=== PATIENT | female | born 1935 | race Caucasian/White ===

== ENCOUNTER → 2017-07-01 | Day surgery (SDC) | payer OTHER ==
[2017-06-30 07:49] VITALS: Ht 157.5 cm; Wt 74.5 kg
[~2017-07-01] VITALS: Ht 157.5 cm; Wt 74.5 kg
[~2017-07-01] MED LIST: ASPCH81X PO; ATROPINE SULFATE 0.1 MG/ML 5ML SYR IV PRN; BUPIVACAINE/EPINEPHRINE 0.5% MPF 1:200,000 30 ML VIAL ONE; CALC500C70 PO; CEFAZOLIN 2000MG IV PUSH 10 ML IV SCH; EpHEDrine SULFATE INJ 50 MG/ML AMP IV PRN; FENTANYL CITRATE INJ 50 MCG/1 ML 2 ML VIAL IV PRN; FENTANYL CITRATE INJ 50 MCG/1 ML 2 ML VIAL ONE; LACTATED RINGER'S 1000ML 1,000 ML IV SCH; LIDOCAINE HCL 1% 20 ML VIAL ONE; LIDOCAINE HCL 2% 2 ML VIAL (20MG/ML) ONE; MIDAZOLAM HCL 1 MG/ML 2ML VIAL ONE; MULT-506 PO; OMEG10007 PO; ONDANSETRON INJ 2 MG/ML 2 ML VIAL IV PRN; ONDANSETRON INJ 2 MG/ML 2 ML VIAL ONE; OXYC-57 PO; OXYCODONE/ACETAMINOPHEN 5-325 TAB PO PRN; POLY1SOL6 OPB; PROPOFOL IV EMULSION 10 MG/ML 20 ML VIAL IV ONE; SODIUM CHLORIDE 0.9% 1000ML 1,000 ML IV SCH; SYN75 PO; VITAMIN C PO; VITAMIN D PO
--- NOTE | 2017-07-01 06:44 | History & Physical Bridge - [place] ---
H&P Re-Evaluation Bridge Note: I have examined the patient, reviewed the History & Physical and in the interval since the performance of the History & Physical I have noted the following changes of clinical significance: No changes noted
--- NOTE | 2017-07-01 09:42 | Discharge Instructions-SurgCtr ---
Discharge Instructions Date of Service Jul 01, 2017. Visit Reason for Visit: Left Ankle Painful Hardware; Closed Bimalleolar Fx Discharge Discharge Diagnosis / Problem: SAME ABOVE Discharge Goals Goal(s): Decrease discomfort, Improve function Activity Recommendations Activity Limitations: as noted below Lifting Limitations: gradually increase as tolerated Exercise/Sports Limitations: until after follow-up appointment Shower/Bathe: keep incision dry Anesthesia . Post Anesthesia Instructions: If you have had General Anesthesia or IV Sedation: * Do not drive today. * Resume driving when surgeon permits. * Do not make important decisions or sign legal documents today. * Call surgeon for: 1. Temperature elevations greater than 101 degrees F. 2. Uncontrollable pain. 3. Excessive bleeding. 4. Persistent nausea and vomiting. 5. Medication intolerance (nausea, vomiting or rash). * For nausea and vomiting use only clear liquids such as: tea, soda, bouillon until nausea subsides, then gradually increase diet as tolerated. * If you have any concerns or questions, call your surgeon's office. If physician is unavailable and it is an emergency, call 911 or go to the nearest emergency room. . Instructions / Follow-Up Instructions / Follow-Up MEDICATIONS: * Resume previous medications unless instructed otherwise by your surgeon. * Always take pain medication on a full stomach or with food to avoid upset stomach. * Do not drink alcohol or drive while taking narcotics. * Ibuprofen or Tylenol may be taken if narcotic not needed. SPECIAL CARE INSTRUCTIONS: __ None _X_ Keep extremity elevated and iced x 48 hours; apply ice 20-30 minutes 8-10 times/day. May remove at night. __ Crutches __ May discard when able __ Brace/Post-op shoe __ 24 hrs/day __ Remove at night _X_ Dressing __ Maintain until seen in office, may shower with plastic over site _X_ Remove dressings in 24-48 hours and then may shower __ Cover incisions with band-aids after showering __ Do not remove steri-strips KEEP INCISION CLEAN AND DRY. REDRESS INCISION AFTER SHOWER COVER WITH CECILLE. Call physician if chills or temperature rises above 102 degrees or pain unrelieved by prescribed pain medications. Office [phone] Diet Recommendations Home Diet: no limitations Procedures Procedures Performed: Left Ankle Plate and Screw Removal Pending Studies Studies pending at discharge: no Medical Emergencies . Who to Call and When: Medical Emergencies: If at any time you feel your situation is an emergency, please call 911 immediately. . Non-Emergent Contact Non-Emergency issues call your: Primary Care Provider . . "Provider Documentation" section prepared by Matthew Machado. .
--- NOTE | 2017-07-01 09:53 | OPERATIVE REPORT ---
DATE OF OPERATION: 07/01/2017 PREOPERATIVE DIAGNOSIS: Painful hardware of the left ankle. POSTOPERATIVE DIAGNOSIS: Same. PROCEDURE: Removal of hardware of the left ankle. SURGEON: Dr. Matthew Martinez. PIERCING ARTIST: Matthew Machado PA-C, whose assistance was necessary for positioning of the leg and helping with retraction and closure. ANESTHESIA: General. COMPLICATIONS: None. CONDITION: Stable to PACU. INDICATIONS: Ottoniel is a pleasant 81-year-old female who underwent an ORIF of left ankle almost 2 years ago. She has always had pain at the most distal aspect of the lateral plate. She never had any medial sided pain. After failing several years of conservative treatment, she elected to undergo hardware removal. OPERATION AND FINDINGS: On 07/01/2017 she arrived at [facility] for the above procedure. She was seen in the preoperative holding area and the operative extremity was identified and signed. She was given a preoperative antibiotic, taken back to the operating room, laid on the table in supine position and put under general anesthesia. The left foot and ankle was then prepped and draped in sterile fashion. Time-out was done and the patient and operative extremity was properly identified. The old incision was opened back up. Dissection was taken down directly to the lateral distal fibular plate. The screws were then removed and the plate was easily elevated off. The wound was irrigated. The skin was then closed with 2-0 Vicryl and kelton. She was then placed in a soft dressing and taken to the postanesthesia care unit in stable condition. She tolerated the procedure well. I attest to the content of the Intraoperative Record and any orders documented therein. Any exception s are noted below.
--- NOTE | 2017-07-01 10:19 | DIAGNOSTIC IMAGING REPORT ---
INTRAOPERATIVE RIGHT ANKLE 3 VIEWS CLINICAL HISTORY: LEFT ANKLE PLATE AND SCREWS REMOVAL COMPARISON STUDY: 08/17/2015 FLUOROSCOPY TIME: 3 seconds. NUMBER OF FLUOROSCOPIC IMAGES: 3 FINDINGS: There has been interval removal of the lateral metallic plate and 8 screws. Screw tract defects are visualized within the fibula. The 2 medial malleolar lag screws remain unchanged in position. IMPRESSION: Interval removal of the distal fibular metallic plate and 8 screws. Electronically signed by: Hank Schaefer M.D. 07/01/2017 10:17 AM Dictated Date/Time: 07/01/2017 10:16 AM
[2017-07-01 11:19] VITALS: TEMP 36.7
--- NOTE | 2017-07-01 11:32 | Anesthesia Progress Nt - [facility] ---
Anesthesia Post Op Note Date & Time Jul 01, 2017 at 11:31 Vital Signs Pain Intensity: 0 Vital Signs Past 12 Hours Date Time Temp Pulse Resp B/P (MAP) Pulse Ox O2 Delivery O2 Flow Rate FiO2 07/01/17 11:19 36.7 54 16 128/77 (94) 96 Room Air 07/01/17 11:09 36.5 20 07/01/17 11:09 61 20 07/01/17 11:06 116/58 07/01/17 11:04 46 12 07/01/17 11:04 46 12 100 07/01/17 11:01 115/55 07/01/17 10:59 48 17 100 07/01/17 10:59 49 17 07/01/17 10:56 123/49 07/01/17 10:54 48 20 07/01/17 10:54 69 20 07/01/17 10:51 118/53 07/01/17 10:49 50 5 07/01/17 10:49 48 5 98 07/01/17 10:46 134/54 07/01/17 10:44 40 16 100 07/01/17 10:44 51 16 07/01/17 10:41 121/54 07/01/17 10:39 48 0 07/01/17 10:39 48 0 95 07/01/17 10:36 124/53 07/01/17 10:34 44 12 07/01/17 10:34 54 12 92 07/01/17 10:32 124/52 07/01/17 10:29 50 17 85 07/01/17 10:29 48 17 07/01/17 10:26 117/59 07/01/17 10:24 64 20 07/01/17 10:24 20 07/01/17 10:21 122/90 07/01/17 10:19 53 13 07/01/17 10:19 56 13 94 07/01/17 10:17 127/65 07/01/17 10:14 44 15 07/01/17 10:14 42 15 98 07/01/17 10:11 129/60 07/01/17 10:09 46 21 100 07/01/17 10:09 45 21 07/01/17 10:07 134/89 07/01/17 10:04 48 07/01/17 10:04 66 100 07/01/17 10:02 147/61 07/01/17 09:59 49 10 100 07/01/17 09:59 49 10 07/01/17 09:56 129/71 07/01/17 09:54 52 17 07/01/17 09:54 74 17 100 07/01/17 09:51 148/63 07/01/17 09:49 55 16 07/01/17 09:49 53 16 100 07/01/17 09:47 132/59 07/01/17 09:44 57 26 99 07/01/17 09:44 60 26 07/01/17 09:41 163/71 07/01/17 09:39 56 07/01/17 09:39 36.6 59 10 159/74 95 Mask 10 07/01/17 09:39 56 159/74 89 07/01/17 06:48 36.3 64 20 141/80 (100) 97 Room Air Notes Mental Status: alert / awake / arousable, participated in evaluation Pt Amnestic to Procedure: Yes Nausea / Vomiting: adequately controlled Pain: adequately controlled Airway Patency, RR, SpO2: stable & adequate BP & HR: stable & adequate Hydration State: stable & adequate Anesthetic Complications: no major complications apparent
[2017-07-01 11:41] VITALS: BP 145/76; O2SAT 96
--- NOTE | 2017-07-01 14:18 | [facility] Post Operative Brief Note ---
Immediate Operative Summary Operative Date Jul 01, 2017. Pre-Operative Diagnosis Left Ankle Painful [place], Closed Bimalleolar Fracture Post-Operative Diagnosis Same Procedure(s) Performed Left Ankle Plate and Screw Removal Surgeon Dr. Oh Martinez Strap Folding Machine Operator Surgeon(s) Oh Machado PA-C Estimated Blood Loss 5 cc Findings as above Specimens One plate and 8 screws removed. There were no defects. Patient did not wish hardware. Dr. Martinez elected not to send to laboratory for examination Complication(s) None Disposition Recovery Room / PACU
== END | disposition home or self-care (01) ==
LOC: X.SURG 06:32
PROVIDERS: ATTEND Orthopaedic Surgery
DX: T84.84XA Pain due to internal orthopedic prosthetic devices, implants and grafts, initial encounter (principal); Y83.1 Surgical operation with implant of artificial internal device as the cause of abnormal reaction of the patient, or of later complication, without mention of misadventure at the time of the procedure; N18.3 Chronic kidney disease, stage 3 (moderate); E07.9 Disorder of thyroid, unspecified